=== PATIENT | female | born 1940 | race Caucasian/White ===

== ENCOUNTER 2024-02-26 17:20 | Inpatient (IN) | payer OTHER, SELFPAY ==
[2024-02-26] VITALS (9 sets, daily range): BP systolic 100–172; BP diastolic 57–85; BMI 26.6
[2024-02-26 12:34] LABS: % Basophils 0.3 % (0-2); % Eosinophils 0.1 % (0-6); % Immature Granulocytes 0.6 % (0-0.5); % Lymphocytes 8.1 % (20.5-51.1); % Monocytes 7.7 % (1.7-9.3); % Neutrophils 83.2 % (42.2-75.2); Absolute Basophils 0.1 10^3/uL (0-0.2); Absolute Immature Granulocytes 0.1 10^3/uL (0-0.05); Absolute Lymphocytes 1.5 10^3/uL (1.2-3.4); Absolute Monocytes 1.5 10^3/uL (0.1-0.6); Absolute Neutrophils 15.8 10^3/uL (1.4-6.5); Hematocrit 33.5 % (37.0-47.0); Hemoglobin 11.8 g/dL (12.0-16.0); Mean Corp Hgb Conc. 35.2 g/dL (33.0-37.0); Mean Corpuscular Hgb 28.2 pg (27.0-31.0); Mean Platelet Volume 11.4 fL (7.4-10.4); Nucleated Red Blood Cells % 0 %; Platelet Count 243 10^3/uL (130-400); Red Blood Cell Count 4.19 10^6/uL (4.20-5.40); Red Cell Dist. Width 13.1 % (11.5-14.5); White Blood Cell Count 19.1 10^3/uL (4.8-10.8)
[2024-02-26 12:55] LABS: Blood Urea Nitrogen 29 mg/dl (7-17); Calcium 9.3 mg/dl (8.4-10.2); Carbon Dioxide 22 mmol/L (22-30); Chloride 103 mmol/L (98-107); Glucose 91 mg/dl (70-99); Sodium 136 mmol/L (135-145); eGFR > 60.00
--- NOTE | 2024-02-26 12:57 | ED.GENMED ---
History of Present Illness
General
Chief Complaint: Weakness
Source: patient
Exam Limitations: none
Time Seen by Provider: 02/26/24 11:57
Nursing documentation reviewed up to this point in time: agreed with
History of Present Illness
History of Present Illness:
83-year-old female presents to the ER for evaluation. Daughter at bedside. Patient was at [facility] independent living. Daughter reports patient apparently woke up on the floor. Patient does not recall falling in the middle of the night.
Staff from [facility] was knocking on her door to remind her to take her medicines however she was on the floor and cannot get to them. She does not recall falling. She denies any headache. She denies any chest pain. Daughter reports patient
has peripheral neuropathy and was unable to stand today which is not normal. Patient is normally able to walk with a walker.
When I asked patient how she feels that she states' I want to get out of here.' Daughter reports she feels seems a little off. Patient does complain of chronic numbness and weakness in legs related to neuropathy. Daughter reports patient has some
chronic leg pain that they attribute to neuropathy
Patient denies any recent illness fever chills.
Review of Systems
Review of Systems
Allergies reviewed?: Yes
Other source history: family
Constitutional: Reports no symptoms and other (Patient reports weakness in legs.); Denies fever, fatigue or chills
EENT: Reports no symptoms
Respiratory: Reports no symptoms
Cardiac: Reports no symptoms
ABD/GI: Reports no symptoms; Denies abdominal pain, nausea or vomiting
Musculoskeletal: Reports no symptoms
Skin: Reports no symptoms
Neurological: Reports other (Denies any focal extremity weakness)
Psychiatric: Reports no symptoms
Phy Exam
General Physical Exam
General Presentation: no apparent distress
General age: appears stated age
General Skin: warm and dry
General Habitus: elderly
General Mental: alert
General Hydration: dry mucous membranes
Cardiovascular Exam
Cardiovascular Exam: regular rate/rhythm, no murmur and normal peripheral pulses
Pulmonary Exam
Pulmonary Exam: lungs clear and no respiratory distress
Gastrointestinal Exam
Gastrointestinal Exam: non tender and soft
Neurological Exam
Neurological Exam: alert and oriented x3
Musculoskeletal Exam
Musculoskeletal Exam: full ROM and other (Moves all extremities no obvious head injury small abrasion to right upper lateral arm)
Skin Exam
Skin Exam: normal color and warm/dry
Psychiatric Exam
Psychiatric Exam: normal mood/affect
Course
Orders/Labs/Results
Orders:
Orders
02/26/24 Breakfast
Cholesterol Lowering
At Your Request: Limited Participation
Cholesterol Lowering: Sodium, 2 Gram
02/26/24 12:17
Basic Metabolic Panel Urgent
Complete Blood Count/With Diff Urgent
02/26/24 13:18
CT Head W/o Iv Contrast Urgent
Comment:
Reason For Exam: trauma
IV Insert/Care/Rem.- Treatment PRN
0.9% Sodium Chloride 500 ml [Nss] 500 ml IV BOLUS
02/26/24 13:19
Electrocardiogram (*1) Stat
Reason for Study: Other
Other Reason for Exam: chest pain
Cardiac Monitoring- Treatment ONCE
EKG- Treatment ONCE
Straight cath- Treatment ONCE
02/26/24 13:22
Urinalysis Reflex To Culture Urgent
Date Specimen was Collected: 02/26/24
Time Specimen was Collected: 12:18
02/26/24 14:50
Lactic Acid Urgent
02/26/24 15:36
0.9% Sodium Chloride 500 ml [Nss] 500 ml IV BOLUS
02/26/24 15:45
Creatine Phosphokinase Urgent
Comment: ADDON
Potassium Urgent
Troponin I Urgent
Comment: ADDON
02/26/24 16:00
Chest [CR Chest - 2 Views ] Urgent
Comment:
Reason For Exam: weakness
02/26/24 16:03
Add On- LAB Urgent
Tests Added?: cpk
02/26/24 16:06
Add On- LAB Urgent
Tests Added?: troponin
02/26/24 16:32
COVID-19 Antigen Urgent
Source: Nasal Swab
Influenza A+B Rapid Molecular Urgent
FINA Source: Nasal Swab
Specimen Description:
02/26/24 16:37
Admit/Transfer Patient As Directed
Co-Sign Provider:
Level of Care: Inpatient admission
Assign to:: Telemetry
Physician / Group: del
Diagnosis: generalized weakness,fall
Reason for Telemetry: Syncope
Date to Stop Telemetry: 02/28/24
Time to Stop Telemetry: 11:00
Reason for Hospitalization: generalized fall
weakness
Expected length of stay greater than two midnights?: Yes
ELOS- Estimated Length of Stay in days: 3
I certify the patient meets the requirements for IP care: Yes
PRN Pain Medication Management As Directed
May give lesser potent ordered pain med per pt: Yes
preference::
Protocol:: Medication orders for pain may be administered in a
manner that supports deferring to patient preference
when the pt is:
- Requesting an ordered lesser potent pain medication.
Least to most potent pain medications are defined
as: acetaminophen < NSAID < tramadol < opioids
(morphine, oxycodone, hydromorphone).
- Requesting a lesser dose of the same medication IF
ORDERED.
- Requesting a less intrusive route of administration
if both routes are prescribed by the provider (PO <
IV).
02/26/24 16:38
Code Status As Directed
Resuscitation Status: Full Code
02/26/24 17:07
Aspirin Chewable [Low Strength Aspirin] 81 mg PO NOW STA
02/26/24 18:09
0.9% Sodium Chloride 1000 ml [Nss] 1,000 ml IV 125 mls/hr
Acetaminophen [Tylenol] 650 mg PO Q4HPRN PRN
Bisacodyl [Dulcolax] 10 mg RECTAL [id number] PRN
Docusate W/Senna [Senokot-S] 1 tablet PO BIDPRN PRN
Enoxaparin Sodium [Lovenox] 40 mg SC QPM
Polyethylene Glycol Powder [Miralax] 17 grams PO DAILYPRN PRN
02/26/24 18:09
Echo 2D MMode Color/Doppler Routine
Reason for Study: sob
CARDIOLOGY CONSULT Routine
Consulting Provider: Brenna Graves
Was physician already notified: Yes
Activity As Directed
Activity Level: As Tolerated
Vital Signs As Directed
Frequency: Per unit guidelines
DX Deep Vein Thrombosis Video Routine
02/26/24 19:34
Troponin I Q6H
02/26/24 22:00
Gabapentin [Neurontin] 300 mg PO TID
02/27/24 02:11
Troponin I Q6H
02/27/24 06:00
Occupational Therapy Consult [Ot Eval And Treat] IN AM
Physical Therapy Consult [Pt Eval And Treat] IN AM
Activity Level: As Tolerated
02/27/24 06:58
Basic Metabolic Panel IN AM
Complete Blood Count/No Diff IN AM
02/27/24 08:00
Bupropion(24Hr)Extended Releas [WELLBUTRIN XL (24 hour extended release)] 150 mg PO DAILY
Diltiazem Extended Release [Cardizem Cd] 240 mg PO DAILY
Pravastatin Sodium [Pravachol] 20 mg PO DAILY
02/27/24 08:03
Troponin I Q6H
02/27/24 18:00
Aspirin Chewable [Low Strength Aspirin] 81 mg PO DAILY
02/28/24 11:00
DC Protocol for Telemetry ONCE
Abnormal Lab Results
02/26/24 02/26/24 02/26/24
12:17 13:22 15:45
WBC 19.1 H 10^3/uL
(4.8-10.8)
RBC 4.19 L 10^6/uL
(4.20-5.40)
Hgb 11.8 L g/dL
(12.0-16.0)
Hct 33.5 L %
(37.0-47.0)
MCV 80.0 L fL
(81.0-99.0)
MPV 11.4 H fL
(7.4-10.4)
Abs Immat Gran (auto) 0.1 H 10^3/uL
(0-0.05)
Absolute Neuts (auto) 15.8 H 10^3/uL
(1.4-6.5)
Absolute Monos (auto) 1.5 H 10^3/uL
(0.1-0.6)
Immature Gran % 0.6 H %
(0-0.5)
Neutrophils % 83.2 H %
(42.2-75.2)
Lymphocytes % 8.1 L %
(20.5-51.1)
BUN 29 H mg/dl
(7-17)
Creatine Kinase 1050 H U/L
(30-135)
Troponin I 0.308 H* ng/ml
Urine Ketones 1+ A
(Negative)
02/26/24 12:17
02/26/24 15:45
Vital Signs
Initial and Last Documented VS:
Initial Vital Signs
Temp Pulse Resp BP Pulse Ox
98.3 F 94 16 163/74 98
02/26/24 10:41 02/26/24 10:41 02/26/24 10:41 02/26/24 10:41 02/26/24 10:41
Last Documented Vital Signs
Temp Pulse Resp BP Pulse Ox
98.1 F 101 16 149/76 96
02/27/24 11:55 02/27/24 11:55 02/27/24 11:55 02/27/24 11:55 02/27/24 11:55
MDM/Problems Addressed
Differential Diagnosis Includes:
Not limited to fall, head injury, dehydration infection
MDM/Problems Addressed:
83 yr old female presented for evaluation. Pt apparently fell out of bed in the middle of the night woke up on the floor but was unable to recall the fall.
Pt arrives to the ED awake alert no acute distress. She denies any headache she denies any chest pain shortness of breath fever chills. She denies any neck pain. On exam there is no obvious head injury. She complains of chronic leg pain and
weakness though this is not new as per daughter and patient she has neuropathy. Patient however is barely able to walk as per daughter.
Patient has no complaints here in the ER. she appears dehydrated on exam was given fluids.
No acute findings on EKG CAT scan head negative. Patient is afebrile however white count elevated 19,000. She denies any recent viral syndrome. Potassium was clotted and reordered. Creatinine normal. Lactic is normal 1.6 urinalysis negative
Due to concerning story of patient falling out of bed and not aware that she fell and was on the floor along with increased weakness today along with leukocytosis will admit
*Radiology
Radiology exam reviewed: radiology read reviewed
*Pulse Oximetry
Patient hypoxic: no
*EKG
Interpreted by ED Provider?: Yes
Heart Rate: 87
Rate: normal
Rhythm: sinus and PVC's
Ischemia: non-specific ST changes
*Critical Care Note
Total Time (30-74mins, 75-104mins- exclusive of procedures): Not Applicable
ED Attending Note
-
Portions of this chart may have been created with voice recognition software.� Occasional wrong word or��sound alike� substitutions may have occurred due to the inherent limitations of voice recognition software.
Discharge Plan
Departure
Patient Disposition: Admit
Date of Disposition: 02/26/24
Time of Disposition: 16:17
Admit to doctor: hospitalist
Presentation/result/management discussed w/ accepting MD/DO: Hospitalist
Patient with high blood pressure during this ER visit?: Yes
Condition: Fair
Discharge Problem:
Fall, Weakness
Interventions
Interventions:
*Risk Screen - Suicide Last Done: 02/26/24 10:41
*General Assessment Last Done: 02/26/24 12:16
*Neglect/Abuse Screening Last Done: 02/26/24 10:41
ED- Fall Risk Assessment Last Done: 02/26/24 18:06
*ED COVID-19 Vaccine History Last Done: 02/26/24 12:16
*Nursing Disposition Last Done: 02/26/24 18:06
ED- Cardiac Assessment Last Done: 02/26/24 12:13
ED- Neurological Assessment Last Done: 02/26/24 12:13
ED- Pulmonary Assessment Last Done: 02/26/24 12:13
Discharge Date and Time
Discharge Date/Time: 02/26/24 18:06
[2024-02-26] MEDS: NSS 500 IV ×2 (13:23→15:47)
[2024-02-26 15:41] LABS: Urine Albumin Trace (Neg - Trace); Urine Bilirubin Negative (Negative); Urine Character Clear (Clear); Urine Color Yellow; Urine Glucose Negative (Negative); Urine Ketone 1+ (Negative); Urine Leukocyte Negative (Negative); Urine Nitrite Negative (Negative); Urine Occult Blood Negative (Negative); Urine Specific Gravity 1.015 (<1.030); Urine Urobilinogen Negative (Neg - 1+); Urine pH 6.5 (5.0-9.0)
[2024-02-26 15:46] LABS: Lactic Acid 1.6 mmol/L (0.7-2.0)
[2024-02-26 16:14] LABS: Potassium 3.8 mmol/L (3.5-5.1)
--- NOTE | 2024-02-26 16:17 | HPS.HSE ---
Addendum entered and electronically signed by Rogelio Esquivel DO 02/26/24 18:26:
Patient seen and examined independently. Agree with findings and plan as set forth by BRENT Schmitz.
Patient is an 83y F with PMH significant for hypertension and neuropathy who presents to ED for evaluation after she was found on the floor this AM by staff at [facility]. Patient states that she does not recall falling from bed - she does
not know if she 'rolled out' or if she got up in the middle fo the night and fell. Patient complains of generalized weakness and lower back discomfort - which is chronic - but no other complaints or focal areas of pain. She denies any chest pain,
palpitations, dyspnea, etc. No recent medication changes or symptoms of acute illness.
Ass:
Found Down / Fall from bed
Abnormal Troponin - Unknown Type
Leukocytosis - Suspected Stress Reaction
Benign Hypertension
Anxiety / Depression
Peripheral Neuropathy
Plan:
Admit for further evaluation and treatment.
Follow on telemetry overnight.
EKG with non-specific changes - no prior tracing to compare.
No symptoms at present but initial troponin is elevated. ? cardiac event responsible for syncope presentation?
Follow troponin to peak.
Cardiology eval for additional recommendations.
Check Echo.
Follow for any new / recurrent symptoms.
Infectious evaluation thus far is unremarkable - including COVID / Flu in the ED.
Follow for any fever or focal symptoms. Observe off of abx for now.
Original Note:
Family Physician
-
Family Physician: Concepcion Berumen
Chief Complaint
-
fall
History of Present Illness
83-year-old female with PMH for HTN, HLD,neuropathy presented to us after a fall. Patient is from [facility] independent living. Daughter reports patient apparently woke up on the floor. Patient does not recall falling in the middle of the
night. Staff from [facility] was knocking on her door to remind her to take her medicines however she was on the floor and cannot get to them. the staff at [facility] found vomit next to her. She does not recall falling.since the fall,
patient not sitting straight, she cannot walk. she is very weak. She denies any headache. She denies any chest pain. Patient is normally able to walk with a walker. denied dizzy or syncopal episode, denied fever, chills, chest pain, sob.denied
runny nose, congestion, cough. denied abdominal pain,n,v,d. denied dysuria or hematuria.
admitting for further management.
Medical History
Past Medical History
Past Medical History: Reports Other
Additional Past Medical History:
HTn
HLD
neuropathy
Past Surgical History: Reports Other
Additional Past Surgical History:
hysterectomy
Social History
Tobacco: Non-smoker
Alcohol: Occasional
Personal: Single
Living: Alone
Family History
Family History: Not pertinent
Allergies / Home Medications
Allergies reflects when Allergies were last updated in [facility].
Home Medications with original date entered in [facility]
Allergy/Medication List:
Allergies
Allergy/AdvReac Type Severity Reaction Status Date / Time
Penicillins Allergy Unknown Verified 02/26/24 10:41
Home Medications
bupropion HCl 150 mg 24 hr tablet, extended release 150 mg PO DAILY 02/26/24
cholecalciferol (vitamin D3) 50 mcg (2,000 unit) tablet (Vitamin D3) 50 mcg PO DAILY 02/26/24
cyanocobalamin (vitamin B-12) 1,000 mcg tablet 1,000 mcg PO DAILY 02/26/24
diltiazem HCl 240 mg capsule,24 hr,extended release 240 mg PO DAILY 02/26/24
gabapentin 300 mg capsule 600 mg PO BID 02/26/24
naproxen sodium 220 mg tablet (Aleve) 880 mg PO BIDPRN PRN mild pain 02/26/24
pravastatin 20 mg tablet 20 mg PO DAILY 02/26/24
Review of Systems
-
Constitutional: Reports No Symptoms
EENT: Reports No Symptoms
Respiratory: Reports No Symptoms
Cardiac: Reports No Symptoms
Abdomen/GI: Reports No Symptoms
: Reports No Symptoms
Musculoskeletal: Reports No Symptoms
Skin: Reports No Symptoms
Neurological: Reports No Symptoms
Endocrine: Reports No Symptoms
Hematologic/Lymphatic: Reports No Symptoms
Psych: Reports No Symptoms
Physical Exam
Vital Signs
Vital Signs
Temp Pulse Resp BP Pulse Ox
98.3 F 85 15 131/57 92
02/26/24 10:41 02/26/24 14:30 02/26/24 14:30 02/26/24 13:00 02/26/24 13:30
Physical Exam
General: Well Developed, Well Nourished and No Apparent Distress
HEENT: NormoCephalic, Moist mucous membranes and Atraumatic
Respiratory: Clear
Cardiac: S1/S2 and Regular Rhythm; No Murmur or Rub
GI: Soft, Non Tender, Non Distended and Normal Bowel Sounds; No Organomegaly
Rectal: Deferred by Provider
Musculoskeletal: No Clubbing, No Cyanosis and No Edema
Skin: Rash and Other (b/l LE noted redeness, rash. right shoulder skin tear)
Neuro: Nonfocal/grossly intact
Psych: Calm
Laboratory Results
-
02/26/24 12:17
02/26/24 15:45
Laboratory Results
Lactic Acid 1.6 mmol/L (0.7-2.0) 02/26/24 14:50
Total Bilirubin Cancelled 02/26/24 12:17
AST Cancelled 02/26/24 12:17
ALT Cancelled 02/26/24 12:17
Alkaline Phosphatase Cancelled 02/26/24 12:17
Data Reviewed
-
CT Scan: Report Reviewed by me
Lab Data: Labs Reviewed by me
Impression/Plan
-
#possible syncope
#elevated trop r/o NSTEMI
-trend trop
-EKG with NSR with PVC's
-asa, obtain ECHO
-PT/OT consult
-head CT negative
-cardiology consulted
#leukocytosis unclear cause
-wbc 19.1, patient is afebrile
-UA negative
-chest x ray pending
-covid negative
-flu pending
#anxiety
-Bupropion continued
#essential htn
-Cardizem continued with hold parameter
#neuropathy
-gabapentin continued
#hld
-Statin continued
#DVT prophylaxis
-Lovenox
#CODE status
-full code
[2024-02-26 16:30] LABS: Creatine Phosphokinase 1050 U/L (30-135)
[2024-02-26 16:52] LABS: Troponin I 0.308 ng/ml
[2024-02-26 16:56] LABS: COVID-19 Antigen Negative (Negative)
[2024-02-26] MEDS: LOW STRENGTH ASPIRIN 81 MG PO (17:39)
[2024-02-26] MEDS: NSS 1000 IV (18:22)
[2024-02-26] MEDS: LOVENOX 40 MG SC (18:37)
[2024-02-26 20:11] LABS: Troponin I 0.292 ng/ml
[2024-02-26] MEDS: NEURONTIN 300 MG PO (21:00)
--- NOTE | 2024-02-26 21:55 | W.PN.UPDATE ---
Update Note
Progress Note Update
chest X ray with Subtle increased reticulonodular markings within the lower lungs bilaterally. Findings are most suggestive of interstitial-type pneumonia.ceftriaxone and doxy added.
[2024-02-26] MEDS: ROCEPHIN 1000 MG IV (22:51)
[2024-02-26] MEDS: STERILE WATER FOR INJECTION 10 ML IV (22:51)
[2024-02-26] MEDS: VIBRAMYCIN 100 MG PO (22:51)
[2024-02-27] VITALS (8 sets, daily range): BP systolic 133–166; BP diastolic 68–90; PULSE 97; O2SAT 92–93
[2024-02-27 02:57] LABS: Troponin I 0.305 ng/ml
[2024-02-27] MEDS: PRAVACHOL 20 MG PO (07:58)
[2024-02-27] MEDS: NEURONTIN 300 MG PO ×3 (07:58→20:41)
[2024-02-27] MEDS: CARDIZEM CD 240 MG PO (07:58)
[2024-02-27] MEDS: WELLBUTRIN XL (24 hour extended release) 150 MG PO (07:58)
[2024-02-27] MEDS: VIBRAMYCIN 100 MG PO ×2 (07:58→20:41)
[2024-02-27 08:17] LABS: Hematocrit 33.8 % (37.0-47.0); Hemoglobin 11.6 g/dL (12.0-16.0); Mean Corp Hgb Conc. 34.3 g/dL (33.0-37.0); Mean Corpuscular Hgb 28.4 pg (27.0-31.0); Mean Corpuscular Volume 82.6 fL (81.0-99.0); Mean Platelet Volume 11.3 fL (7.4-10.4); Platelet Count 223 10^3/uL (130-400); Red Blood Cell Count 4.09 10^6/uL (4.20-5.40); Red Cell Dist. Width 13.2 % (11.5-14.5); White Blood Cell Count 12.8 10^3/uL (4.8-10.8)
[2024-02-27 08:50] LABS: Blood Urea Nitrogen 18 mg/dl (7-17); Calcium 9.1 mg/dl (8.4-10.2); Carbon Dioxide 19 mmol/L (22-30); Chloride 105 mmol/L (98-107); Estimated Creatinine Clearance 48 ml/min; Glucose 87 mg/dl (70-99); Potassium 3.6 mmol/L (3.5-5.1); Sodium 138 mmol/L (135-145); eGFR > 60.00
--- NOTE | 2024-02-27 08:52 | CON.CAR ---
Consultation
Consultation Request
Date/Time Consultation Requested: 02/27/2024
Date/Time Consultation Performed: 02/27/2024
Reason for Consultation: Syncope
Medical History
-
Chief Complaint: Syncope
History of Present Illness:
83-year-old woman with a history of hypertension and neuropathy who presented to the [facility] with episode of syncope. Patient is a resident of [facility] and was found down. Patient reports that she was sitting and next thing she
remembers was on the floor. Denies any injury. No pain in the head or body. No chest pain. Denies any frequent syncopes in the past.
Patient is able to ambulate using a walker. She denies any dizziness. No fevers rigors and chills.
Chest x-ray was done in the ER that shows possible pneumonia and is started on antibiotics.
Past Medical History
Past Medical History: HTN, Hypercholesterolemia and Other (Neuropathy)
Social History
Tobacco: Non-Smoker
Alcohol: Occasional
Personal: Single
Family History
Family History: Reviewed & Not Pertinent
Allergies / Home Medications
Allergy/AdvReac Type Severity Reaction Status Date / Time
Penicillins Allergy Unknown Verified 02/26/24 10:41
�Medication �Instructions �Recorded �Confirmed �Type
bupropion HCl 150 mg 24 hr tablet, 150 mg PO DAILY Mental 02/26/24 02/26/24 History
extended release Health/Anxiety
cholecalciferol (vitamin D3) 50 50 mcg PO DAILY Supplement 02/26/24 02/26/24 History
mcg (2,000 unit) tablet (Vitamin
D3)
cyanocobalamin (vitamin B-12) 1,000 mcg PO DAILY Supplement 02/26/24 02/26/24 History
1,000 mcg tablet
diltiazem HCl 240 mg capsule,24 240 mg PO DAILY Blood Pressure 02/26/24 02/26/24 History
hr,extended release
gabapentin 300 mg capsule 600 mg PO BID NEUROPATHY 02/26/24 02/26/24 History
naproxen sodium 220 mg tablet 880 mg PO BIDPRN PRN mild pain 02/26/24 02/26/24 History
(Aleve)
pravastatin 20 mg tablet 20 mg PO DAILY High Cholesterol 02/26/24 02/26/24 History
Review of Systems
-
All other systems: Negative unless noted
Physical Exam
Vital Signs
Temp Pulse Resp BP Pulse Ox
98.1 F 95 16 162/90 92
02/27/24 07:10 02/27/24 07:10 02/27/24 07:10 02/27/24 07:10 02/27/24 07:10
Lab Results
02/27/24 06:58
02/27/24 06:58
Troponin I 0.305 ng/ml H* 02/27/24 02:11
Physical Exam
General: Well Developed, Well Nourished and No Apparent Distress
HEENT: Normocephalic, Anicteric and Moist Mucous Membranes
Respiratory: Crackles (Basal crackles) and Non Labored Respirations
Cardiac: S1/S2 and Regular Rhythm; Negative Murmur
GI: Soft, Non Tender, Non Distended and Normal Bowel Sounds
Musculoskeletal: No Clubbing, No Cyanosis and No Edema
Skin: Warm and Dry
Neuro: Awake, Alert, Oriented, AO x 3 and No Motor Deficits
Impression / Plan
-
83-year-old woman with history of hypertension hyperlipidemia presented with an episode of syncope and found down on the floor.
Syncope
-Unclear etiology of syncope. Patient's chest x-ray is positive for pneumonia
-Possible pneumonia related with leukocytosis. Continue antibiotics
-Telemetry-sofa telemetry shows normal sinus rhythm with PVCs.
-Continue aspirin and will obtain echo.
-EKG done shows normal sinus rhythm with PVCs.
-Echo in a.m.
Hypertension
-Patient is on to 40 mg of diltiazem once a day
-Diltiazem is not a first-line drug for blood pressure control. Not clear of past cardiac history.
-Obtain previous cardiac records.
Hyperlipidemia
-Pravastatin
Data Reviewed
-
EKG: Tracing Personally Visualized and interpreted
Radiology: Report Reviewed by me
Labs: Labs Reviewed by me
Old Records: Reviewed
[2024-02-27 08:57] LABS: Troponin I 0.294 ng/ml
--- NOTE | 2024-02-27 09:04 | W.PN.HOSP.TC ---
Today's Communication/Plan
-
see bold
Assessment / Plan
Assessment / Plan
Gen: NAD, Awake and alert
Eyes: EOMI, PERRLA, no scleral icterus.
Neck: supple.
CV: RRR, +S1/S2, no m/r/g.
Resp: mild rales in the bases
Abd: +BS, soft, NT, ND
Skin: No rashes.
Neuro: CN 2-12 intact, non-focal.
Psych: Normal mood and affect.
CXR: Subtle increased reticulonodular markings within the lower lungs bilaterally. Findings are most suggestive of interstitial-type pneumonia.
Fall/found down/elevated trop:
-Tele: SR/sinus tachy with PVCs
-trop 0.292, 0.305, 0.294 (suspect nonischemic myocardia injury)
-ECG on admission without acute ischemic changes
-check echo
-discussed with cards
-stop IVFs (rales in the bases)
Acute bacterial PNA:
-COVID NEG
-Leukocytosis improving
-afebrile, saturating well on room air
-CXR above, pt started on Rocephin/Doxy
-Procal POS, will treat as bacterial PNA
Other problems:
Essential Hypertension: cont Cardizem
Anxiety/Depression: cont Wellbutrin
Peripheral Neuropathy: cont Neurontin
HLD: cont statin
Anticipated Discharge: 24 - 48 hours
Subjective/Interval History
-
Date of Service: February 27, 2024
Denies CP/SOB.
Objective Data
-
Labs:
Laboratory Results
02/27/24
06:58
WBC 12.8 H
Hgb 11.6 L
Hct 33.8 L
Plt Count 223
Sodium 138
Potassium 3.6
Chloride 105
Carbon Dioxide 19 L
BUN 18 H
Creatinine 0.8
Glucose 87
Calcium 9.1
Vital Signs:
Vital Signs
Temp Pulse Resp BP Pulse Ox
98.1 F 95 16 162/90 92
02/27/24 07:10 02/27/24 07:10 02/27/24 07:10 02/27/24 07:10 02/27/24 07:10
I&O
02/26/24 02/27/24 02/28/24
06:59 06:59 06:59
Intake Total 480 / 480
Balance 480 / 480
[2024-02-27] MEDS: NSS 1000 IV (09:58)
[2024-02-27 10:16] LABS: Procalcitonin 0.97 ng/ml (0.0-0.25)
[2024-02-27] MEDS: NSS IV (10:46)
[2024-02-27] MEDS: TYLENOL 650 MG PO (11:24)
[2024-02-27] MEDS: LOW STRENGTH ASPIRIN 81 MG PO (17:27)
[2024-02-27] MEDS: LOVENOX 40 MG SC (17:27)
[2024-02-27] MEDS: FLUSH (NSS) 2 FLUSH IV (20:44)
[2024-02-27] MEDS: STERILE WATER FOR INJECTION 10 ML IV (21:10)
[2024-02-27] MEDS: ROCEPHIN 1000 MG IV (21:10)
[2024-02-28] VITALS (7 sets, daily range): BP systolic 142–189; BP diastolic 74–96
--- NOTE | 2024-02-28 06:00 | PTCARENOTE ---
BP 182/86 HR 90. Chiara KENNEDY notified of same. Morning cardizem dose given early as suggested by Shanna Dewitt.
[2024-02-28] MEDS: CARDIZEM CD 240 MG PO (06:43)
[2024-02-28] MEDS: NEURONTIN 300 MG PO ×3 (09:19→23:00)
[2024-02-28] MEDS: PRAVACHOL 20 MG PO (09:20)
[2024-02-28] MEDS: LOW STRENGTH ASPIRIN 81 MG PO (09:20)
[2024-02-28] MEDS: WELLBUTRIN XL (24 hour extended release) 150 MG PO (09:20)
[2024-02-28] MEDS: VIBRAMYCIN 100 MG PO ×2 (09:20→20:29)
--- NOTE | 2024-02-28 09:51 | W.PN.HOSP.TC ---
Today's Communication/Plan
-
see bold
Assessment / Plan
Assessment / Plan
Gen: NAD, Awake and alert
Eyes: EOMI, PERRLA, no scleral icterus.
Neck: supple.
CV: RRR, +S1/S2, no m/r/g.
Resp: CTAB anteriorly
Abd: +BS, soft, NT, ND
Skin: No rashes.
Neuro: CN 2-12 intact, non-focal.
Psych: Normal mood and affect.
CXR: Subtle increased reticulonodular markings within the lower lungs bilaterally. Findings are most suggestive of interstitial-type pneumonia.
Fall/found down/elevated trop:
-Tele: SR/sinus tachy with PVCs
-trop 0.292, 0.305, 0.294 (suspect nonischemic myocardia injury)
-ECG on admission without acute ischemic changes
-was on IVFs, now off
-check echo
-discussed with cards
Acute bacterial PNA:
-COVID NEG
-Leukocytosis improving
-afebrile, saturating well on room air
-CXR above, pt started on Rocephin/Doxy
-Procal POS, treating as bacterial PNA
Other problems:
Essential Hypertension: cont Cardizem, start Lisinopril 10
Anxiety/Depression: cont Wellbutrin
Peripheral Neuropathy: cont Neurontin
HLD: cont statin
FULL/Lovenox
Anticipated Discharge: Within 24 hours
Subjective/Interval History
-
Date of Service: February 28, 2024
Objective Data
-
Vital Signs:
Vital Signs
Temp Pulse Resp BP Pulse Ox
98.3 F 94 18 174/96 93
02/28/24 08:06 02/28/24 08:06 02/28/24 08:06 02/28/24 08:06 02/28/24 08:06
I&O
02/27/24 02/28/24 02/29/24
06:59 06:59 06:59
Intake Total 480 / 480 360 / 360
Balance 480 / 480 360 / 360
[2024-02-28] MEDS: ZESTRIL 10 MG PO (10:26)
[2024-02-28 10:33] LABS: Hematocrit 36.3 % (37.0-47.0); Hemoglobin 12.5 g/dL (12.0-16.0); Mean Corp Hgb Conc. 34.4 g/dL (33.0-37.0); Mean Corpuscular Hgb 29.1 pg (27.0-31.0); Mean Corpuscular Volume 84.6 fL (81.0-99.0); Mean Platelet Volume 10.9 fL (7.4-10.4); Platelet Count 236 10^3/uL (130-400); Red Blood Cell Count 4.29 10^6/uL (4.20-5.40); Red Cell Dist. Width 13.1 % (11.5-14.5)
[2024-02-28 10:37] LABS: Blood Urea Nitrogen 14 mg/dl (7-17); Calcium 9.5 mg/dl (8.4-10.2); Carbon Dioxide 23 mmol/L (22-30); Chloride 104 mmol/L (98-107); Estimated Creatinine Clearance 43 ml/min; Glucose 126 mg/dl (70-99); Sodium 137 mmol/L (135-145); eGFR > 60.00
--- NOTE | 2024-02-28 16:32 | W.PN.CD ---
Today's Communication / Plan
-
Unremarkable TTE
Does not appear to be a CV cause for syncope.
We will sign off please call with questions/concerns.
Impression / Plan
-
83-year-old woman with history of hypertension hyperlipidemia presented with an episode of syncope and found down on the floor.
Syncope
-Unclear etiology of syncope. Patient's chest x-ray is positive for pneumonia
-Possible pneumonia related with leukocytosis. Continue antibiotics
-Telemetry-sofa telemetry shows normal sinus rhythm with PVCs.
-Continue aspirin and will obtain echo.
-EKG done shows normal sinus rhythm with PVCs.
-Echo below
- does not appear to be from a CV cause at this point
Hypertension
-Patient is on to 40 mg of diltiazem once a day
-Diltiazem is not a first-line drug for blood pressure control. Not clear of past cardiac history.
-Obtain previous cardiac records.
Hyperlipidemia
-Pravastatin
TTE: CONCLUSIONS
Normal LV size and function with no regional wall motion abnormalities.
LVEF is 60-65% by visual estimation.
Mild concentric LVH with moderate septal hypertrophy.
Normal right ventricular size and function.
Mild aortic regurgitation.
Estimated pulmonary artery pressure of 24 mmHg, assuming a right atrial
pressure of 3 mmHg.
No prior study available for comparison.
Physical Exam
Vital Signs/Labs
Vital Signs
Temp Pulse Resp BP Pulse Ox
97.5 F 95 18 142/84 97
02/28/24 14:43 02/28/24 14:43 02/28/24 14:43 02/28/24 14:43 02/28/24 14:43
02/27/24 02/28/24 02/29/24
06:59 06:59 06:59
Actual Weight 147 lb 7 oz
02/28/24 10:05
02/28/24 10:05
LAB Results
02/26/24 02/26/24 02/27/24
15:45 19:34 02:11
Troponin I 0.308 H* 0.292 H* 0.305 H*
02/27/24
08:03
Troponin I 0.294 H*
Physical Exam
Constitutional: No acute distress
EENT: Anicteric
Cardiovascular: Rhythm & rate is regular and Pedal edema is absent
Respiratory: Respiratory effort normal and Lungs clear to auscul.
GI: Soft
Neuro/Psych: Alert and Oriented
Data Reviewed
-
Date of Service: February 28, 2024
EKG: Tracing Personally Visualized and interpreted (sr)
Echo: Tracing Personally Visualized and interpreted
Labs: Labs Reviewed by me
[2024-02-28] MEDS: SENOKOT-S 1 TABLET PO (17:36)
[2024-02-28] MEDS: LOVENOX 40 MG SC (17:37)
[2024-02-28] MEDS: STERILE WATER FOR INJECTION 10 ML IV (23:12)
[2024-02-28] MEDS: ROCEPHIN 1000 MG IV (23:12)
[2024-02-29] VITALS (7 sets, daily range): BP systolic 142–176; BP diastolic 69–90; PULSE 98–115; O2SAT 94–95
[2024-02-29 08:13] LABS: Hematocrit 34.8 % (37.0-47.0); Hemoglobin 11.8 g/dL (12.0-16.0); Mean Corp Hgb Conc. 33.9 g/dL (33.0-37.0); Mean Corpuscular Volume 82.5 fL (81.0-99.0); Mean Platelet Volume 10.5 fL (7.4-10.4); Platelet Count 251 10^3/uL (130-400); Red Blood Cell Count 4.22 10^6/uL (4.20-5.40); White Blood Cell Count 6.3 10^3/uL (4.8-10.8)
[2024-02-29] MEDS: VIBRAMYCIN 100 MG PO (08:50)
[2024-02-29] MEDS: CARDIZEM CD 240 MG PO (08:50)
[2024-02-29] MEDS: LOW STRENGTH ASPIRIN 81 MG PO (08:50)
[2024-02-29] MEDS: ZESTRIL 10 MG PO (08:50)
[2024-02-29] MEDS: WELLBUTRIN XL (24 hour extended release) 150 MG PO (08:50)
[2024-02-29] MEDS: PRAVACHOL 20 MG PO (08:50)
[2024-02-29] MEDS: NEURONTIN 300 MG PO (08:50)
[2024-02-29 08:53] LABS: Blood Urea Nitrogen 15 mg/dl (7-17); Calcium 9.6 mg/dl (8.4-10.2); Carbon Dioxide 25 mmol/L (22-30); Chloride 102 mmol/L (98-107); Estimated Creatinine Clearance 43 ml/min; Glucose 88 mg/dl (70-99); Potassium 4.2 mmol/L (3.5-5.1); Sodium 138 mmol/L (135-145); eGFR > 60.00
--- NOTE | 2024-02-29 10:42 | W.PN.HOSP.TC ---
Addendum entered and electronically signed by Caleb Falcon MD 02/29/24 12:32:
Total time spent on d/c = 37 min. This included today's physical exam, progress note, review of laboratory and diagnostic data, preparation of discharge documents and prescriptions, and discussions about the pt's hospital course and discharge plan
with the patient and other medical appliance maker involved in the patient's care.
Original Note:
Today's Communication/Plan
-
see bold
Assessment / Plan
Assessment / Plan
Gen: NAD, Awake and alert
Eyes: EOMI, PERRLA, no scleral icterus.
Neck: supple.
CV: remains RRR, +S1/S2, no m/r/g.
Resp: remains CTAB anteriorly
Abd: remains +BS, soft, NT, ND
Skin: No rashes.
Neuro: CN 2-12 intact, non-focal.
Psych: Normal mood and affect.
CXR: Subtle increased reticulonodular markings within the lower lungs bilaterally. Findings are most suggestive of interstitial-type pneumonia.
Echo: Normal LV size and function with no regional wall motion abnormalities.
LVEF is 60-65% by visual estimation.
Mild concentric LVH with moderate septal hypertrophy.
Normal right ventricular size and function.
Mild aortic regurgitation.
Estimated pulmonary artery pressure of 24 mmHg, assuming a right atrial
pressure of 3 mmHg.
No prior study available for comparison.
Fall/found down/elevated trop:
-Tele: SR/sinus tachy with PVCs
-trop 0.292, 0.305, 0.294 (suspect nonischemic myocardia injury)
-ECG on admission without acute ischemic changes
-was on IVFs, now off
-echo above
-cardiology saw the pt in consult and does not feel the patient's syncope was cardiac in etiology. They have signed off.
Acute bacterial PNA:
-COVID NEG
-Leukocytosis improving
-afebrile, saturating well on room air
-CXR above, pt started on Rocephin/Doxy
-Procal POS, treating as bacterial PNA
Other problems:
Essential Hypertension: cont Cardizem, Lisinopril 10 started
Anxiety/Depression: cont Wellbutrin
Peripheral Neuropathy: cont Neurontin
HLD: cont statin
FULL/Lovenox
Medically cleared for d/c. Case management aware.
Anticipated Discharge: Today
Subjective/Interval History
-
Date of Service: February 29, 2024
Objective Data
-
Labs:
Laboratory Results
02/29/24
07:53
WBC 6.3
Hgb 11.8 L
Hct 34.8 L
Plt Count 251
Sodium 138
Potassium 4.2
Chloride 102
Carbon Dioxide 25
BUN 15
Creatinine 0.9
Glucose 88
Calcium 9.6
Vital Signs:
Vital Signs
Temp Pulse Resp BP Pulse Ox
97.5 F 88 22 176/90 97
02/29/24 07:46 02/29/24 08:50 02/29/24 07:46 02/29/24 08:50 02/29/24 07:46
I&O
02/28/24 02/29/24 03/01/24
06:59 06:59 06:59
Intake Total 360 / 360
Balance 360 / 360
--- NOTE | 2024-02-29 12:26 | W.DCSUMMARY ---
Discharge Summary
Discharge Data
Date of Admission: 02/26/24
Date of Discharge: 02/29/24
-
Pending Results: No
Hospital Course
Primary diagnoses:
Acute pneumonia
Nonischemic myocardial injury
Secondary diagnoses:
Essential Hypertension
Anxiety
Depression
Peripheral Neuropathy
Hyperlipidemia
Consultants:
Cardiology
Imaging:
CXR: Subtle increased reticulonodular markings within the lower lungs bilaterally. Findings are most suggestive of interstitial-type pneumonia.
Echo: Normal LV size and function with no regional wall motion abnormalities.
LVEF is 60-65% by visual estimation.
Mild concentric LVH with moderate septal hypertrophy.
Normal right ventricular size and function.
Mild aortic regurgitation.
Estimated pulmonary artery pressure of 24 mmHg, assuming a right atrial
pressure of 3 mmHg.
No prior study available for comparison.
Hospital course: 83-year-old female who presented after she was found down on the floor at [facility]. Her troponins were 0.292, 0.305, 0.294 and this was likely nonischemic myocardia injury. Telemetry showed sinus rhythm and sinus tachycardia
with PVCs. ECG on admission was without acute ischemic changes. She was on IV fluids early on during hospitalization. Echocardiogram above. The patient was seen in consultation by cardiology and they did not feel the patient's syncope was
cardiac in etiology. Cardiology signed off. Chest x-ray above. Patient was COVID-negative. Patient was placed on Rocephin and doxycycline as her procalcitonin was positive. She had a leukocytosis on admission that resolved. She will complete
antibiotic therapy with Levaquin.
Discharge Plan
-
Patient Disposition: Long-Term/SNF
Discharge Diagnosis/Procedures: Pneumonia, elevated troponin due to nonischemic myocardial injury
Condition: Good
Diet: Low Cholesterol
Activity: As tolerated
Driving Restrictions: Not until seen by your Dr
Others Tests: Chest x-ray 4 weeks
Referrals:
Concepcion Berumen MD [Family Provider] - in less than 1 week
Prescriptions:
New
lisinopril 10 mg Tablet
10 mg PO DAILY Qty: 0 0RF
aspirin 81 mg Tablet,Chewable
81 mg PO DAILY Qty: 0 0RF
gabapentin 300 mg Capsule
300 mg PO TID Qty: 0 0RF
levofloxacin 750 mg tablet
750 mg PO DAILY Qty: 3 0RF
Rx Instructions:
last day 03/03/24
Continued
cyanocobalamin (vitamin B-12) 1,000 mcg Tablet
1,000 mcg PO DAILY
diltiazem HCl 240 mg Capsule,Extended Release 24 Hr
240 mg PO DAILY
bupropion HCl 150 mg Tablet Extended Release 24 Hr
150 mg PO DAILY
cholecalciferol (vitamin D3) [Vitamin D3] 50 mcg (2,000 unit) Tablet
50 mcg PO DAILY
pravastatin 20 mg Tablet
20 mg PO DAILY
Discontinued
naproxen sodium [Aleve] 220 mg Tablet
880 mg PO BIDPRN PRN (Reason: mild pain)
gabapentin 300 mg Capsule
600 mg PO BID
Discharge Orders:
Discharge Patient (As Directed); Ordered 02/29/24
Ordered By: Caleb Falcon
Discharge Date and Time
Print Language: MAORI
[2024-02-29] MEDS: LEVAQUIN 750 MG PO (13:00)
[2024-02-29 13:38] LABS: COVID-19 Antigen Negative (Negative)
--- NOTE | 2024-02-29 15:42 | PTCARENOTE ---
Received patient this am AAOx3. Pt forgetful an anxious. Pt tolerated diet well. OOB to chair with assistance x2 and tolerated. Pt offered no complaints. Made patient comfortable. Cont to assess patient status. Pt for discharge to [facility] today.
== END 2024-02-29 15:44 | DRG 194 ==
LOC: 4 EAST ACU 17:20
PROVIDERS: Nurse Practitioner; Registered Nurse; ADMITTING PHYSICIAN Hospitalist; ATTENDING PHYSICIAN Internal Medicine; CONSULT PHYSICIAN Internal Medicine Cardiovascular Disease; EMERGENCY PHYSICIAN Emergency Medicine; FAMILY PHYSICIAN Internal Medicine Geriatric Medicine
DX: J15.9 Unspecified bacterial pneumonia (principal); I5A Non-ischemic myocardial injury (non-traumatic); R55 Syncope and collapse; I10 Essential (primary) hypertension; G62.9 Polyneuropathy, unspecified; F32.A Depression, unspecified; F41.9 Anxiety disorder, unspecified; E78.00 Pure hypercholesterolemia, unspecified; G89.29 Other chronic pain; Z79.899 Other long term (current) drug therapy; Z88.0 Allergy status to penicillin; Z11.52 Encounter for screening for COVID-19
CPT/HCPCS: 70450; 71046; 80048; 81003; 82550; 83605; 84132; 84145; 84484; 85025; 85027; 87502; 87811; 93005; 93306; 96360; 96361; 97163; 97166; 97530; 97535; 99285

== ENCOUNTER 2024-10-03 09:19 | Emergency (ER) | payer MEDICARE, SELFPAY ==
[2024-10-03 09:30] VITALS: BMI 28.3
--- NOTE | 2024-10-03 09:30 | ED.GENMED ---
History of Present Illness
General
Chief Complaint: Urinary Symptoms
Source: records [facility]
Time Seen by Provider: 10/03/24 09:22
History of Present Illness
History of Present Illness:
84-year-old female with past medical history of hypertension, hyperlipidemia, stress incontinence, anxiety and depression presenting to the emergency department for evaluation via EMS from [facility] for
evaluation of inability to urinate this morning. Staff at the [facility] states that patient noted she needed to go to the bathroom multiple times, they placed her on the toilet but she was unable to urinate, bladder scan was done
which showed greater than 1100 mL of urine but they were unfortunately unable to place a Huff catheter so she was sent to the ER for further evaluation. No reported fevers, chills, rigors, nausea, vomiting, back or flank pain or any other
concerns. Patient unsure of any recent medication changes.
Past History
Past History
ED Past Medical History: HTN, Hypercholesterolemia, Psychiatric and Other (Urinary stress incontinence)
ED Past Surgical History: Gynecological
Social History
Tobacco: Non-smoker
Alcohol: None
Drug: None
Personal:
Living: assisted living
Review of Systems
Review of Systems
All Other Systems: ROS reviewed and negative except as documented in HPI and ROS
Phy Exam
Physical Exam
Physical Exam:
GENERAL: Alert , in no apparent distress but appears uncomfortable
EYE: conjunctiva clear
NECK: Supple
ENT: mmm.
CARDIAC: Regular rate and rhythm
LUNGS: Clear breath sounds bilaterally, no acute respiratory distress, no wheezes/rales/rhonchi
ABDOMEN: Lower abdominal distention, firm, remainder of abdomen is soft and without tenderness
NEUROLOGICAL: Alert and oriented to person place and time
SKIN: Warm and dry, skin intact.
MUSCULOSKELETAL: well perfused.
PSYCH: Normal and appropriate interaction.
Scores
Heart Failure Risk
Heart Failure Risk Score: Not Applicable
Heart Score for Chest Pain Patients
STEMI patient?: Not applicable
Withdrawal Assessment of Alcohol
Withdrawal Assessment Completed?: Not applicable
Course
Orders/Labs/Results
Orders:
Orders
10/03/24 09:29
Bladder Scan- Treatment ONCE
Catheter [Huff Placement- Treatment] ONCE
Reason for insertion: Acute Retention
Catheter- Indwelling As Directed
Reason for insertion: Acute Retention
Discontinue Date/Time: 10/06/24 0600
10/03/24 09:45
Complete Blood Count/With Diff Urgent
Urinalysis Reflex To Culture Urgent
Date Specimen was Collected: 10/03/24
Time Specimen was Collected: 09:29
10/03/24 10:54
Basic Metabolic Panel Urgent
Abnormal Lab Results
10/03/24 10/03/24
09:45 10:54
MPV 11.2 H fL
(7.4-10.4)
BUN 20 H mg/dl
(7-17)
10/03/24 09:45
10/03/24 10:54
Vital Signs
Initial and Last Documented VS:
Initial Vital Signs
Pulse Resp Pulse Ox
79 13 98
10/03/24 09:28 10/03/24 09:28 10/03/24 09:28
Last Documented Vital Signs
Temp Pulse Resp BP Pulse Ox
98.5 F 80 16 126/75 98
10/03/24 12:56 10/03/24 12:56 10/03/24 12:56 10/03/24 12:56 10/03/24 12:56
MDM/Problems Addressed
Differential Diagnosis Includes:
Bladder outlet obstruction, renal dysfunction, urinary tract infection/cystitis
MDM/Problems Addressed:
84-year-old female presenting to the ER for evaluation of lower abdominal pressure with inability to urinate with symptoms reportedly starting this morning. Staff at her snf facility attempted to pass a Huff catheter unsuccessfully x
2. Bladder scan done here showed greater than 1 L of urine. Huff catheter placed without problem. Draining clear yellow urine without sediment. Patient's records show a noted history for chronic lower back pain however patient without any focal
neurologic deficits to her lower extremities or current back pain making my suspicion for cauda equina pretty low. Question urinary tract infection however there is no pyuria or urinary sediment. Patient going back to snf facility
where she can be continuously monitored. Anticipate discharge back to facility.
*Pulse Oximetry
Patient hypoxic: no
*Critical Care Note
Total Time (30-74mins, 75-104mins- exclusive of procedures): Not Applicable
Data Reviewed
Review of Other/Old Records Reveals: Labs and Discharge Summary
Patient Management
Discussion with other providers: long term staff
Escalation/DeEscalation of care consider admission/obs:
Patient's labs are reassuring. No evidence for acute kidney injury. Urinalysis without sign of infection. At this time patient is stable for discharge home back to the snf facility for continued care.
ED Attending Note
-
Portions of this chart may have been created with voice recognition software.� Occasional wrong word or��sound alike� substitutions may have occurred due to the inherent limitations of voice recognition software.
Discharge Plan
Departure
Patient Disposition: Custodial/SNF
Date of Disposition: 10/03/24
Time of Disposition: 11:29
Patient with high blood pressure during this ER visit?: No
Discharge Problem:
Acute urinary retention
Instructions: Urinary retention - Discharge instructions
Prescriptions:
No Action
cyanocobalamin (vitamin B-12) 1,000 mcg Tablet
1,000 mcg PO DAILY
diltiazem HCl 240 mg Capsule,Extended Release 24 Hr
240 mg PO DAILY
bupropion HCl 150 mg Tablet Extended Release 24 Hr
150 mg PO DAILY
cholecalciferol (vitamin D3) [Vitamin D3] 50 mcg (2,000 unit) Tablet
50 mcg PO DAILY
aspirin 81 mg Tablet,Chewable
81 mg PO DAILY Qty: 0 0RF
gabapentin 300 mg Capsule
300 mg PO TID Qty: 0 0RF
sertraline [Zoloft] 50 mg Tablet
50 mg PO DAILY
Referrals:
Edwin Lamar Jr., MD [Active] - (Urology- Follow up for catheter removal)
UNKNOWN - PT DOES,NOT KNOW [Family Provider] -
Interventions
Interventions:
*Risk Screen - Suicide Last Done: 10/03/24 09:31
*General Assessment Last Done: 10/03/24 09:31
*Neglect/Abuse Screening Last Done: 10/03/24 09:31
*ED- Fall Risk Assessment Last Done: 10/03/24 09:31
*ED COVID-19 Vaccine History Last Done: 10/03/24 09:31
*Nursing Disposition Last Done: 10/03/24 12:33
ED-Female Genitourinary Assessment Last Done: 10/03/24 09:31
Discharge Date and Time
Discharge Date/Time: 10/03/24 12:56
Print Language: ALBANIAN
[2024-10-03 09:31] VITALS: BP 186/90
[2024-10-03 09:41] VITALS: BP 179/72
[2024-10-03 09:55] LABS: % Basophils 0.6 % (0-2); % Eosinophils 2.4 % (0-6); % Immature Granulocytes 0.3 % (0-0.5); % Lymphocytes 25.2 % (20.5-51.1); % Monocytes 8.7 % (1.7-9.3); % Neutrophils 62.8 % (42.2-75.2); Absolute Eosinophils 0.2 10^3/uL (0-0.7); Absolute Lymphocytes 1.7 10^3/uL (1.2-3.4); Absolute Monocytes 0.6 10^3/uL (0.1-0.6); Absolute Neutrophils 4.1 10^3/uL (1.4-6.5); Hematocrit 38.8 % (37.0-47.0); Hemoglobin 13.2 g/dL (12.0-16.0); Mean Corpuscular Hgb 29.5 pg (27.0-31.0); Mean Corpuscular Volume 86.6 fL (81.0-99.0); Mean Platelet Volume 11.2 fL (7.4-10.4); Nucleated Red Blood Cells % 0 %; Platelet Count 211 10^3/uL (130-400); Red Blood Cell Count 4.48 10^6/uL (4.20-5.40); Red Cell Dist. Width 13.1 % (11.5-14.5); White Blood Cell Count 6.6 10^3/uL (4.8-10.8)
[2024-10-03 10:00] VITALS: BP 168/86
[2024-10-03 10:05] LABS: Urine Albumin Negative (Neg - Trace); Urine Bilirubin Negative (Negative); Urine Character Clear (Clear); Urine Color Yellow; Urine Glucose Negative (Negative); Urine Ketone Negative (Negative); Urine Leukocyte Negative (Negative); Urine Nitrite Negative (Negative); Urine Occult Blood Negative (Negative); Urine Urobilinogen Negative (Neg - 1+)
[2024-10-03 11:00] VITALS: BP 164/72
[2024-10-03 11:30] LABS: Blood Urea Nitrogen 20 mg/dl (7-17); Calcium 9.2 mg/dl (8.4-10.2); Carbon Dioxide 25 mmol/L (22-30); Chloride 107 mmol/L (98-107); Estimated Creatinine Clearance 50 ml/min; Glucose 74 mg/dl (70-99); Sodium 138 mmol/L (135-145); eGFR > 60.00
--- NOTE | 2024-10-03 11:40 | EDRN ---
this RN called the receiving facility [facility] at [phone] and this RN was forwarded to the apartment hotel manager Jess's voice mail, this RN left a voice mail regarding the pt returning to the facility
--- NOTE | 2024-10-03 12:31 | EDRN ---
this RN attempted to call [facility] the [facility] again at [phone] to give verbal report and to notify staff that the pt is being sent back with an indwelling urinary catheter and this RN was able to speak with staff and give verbal
report
[2024-10-03 12:56] VITALS: BP 126/75
== END 2024-10-03 12:56 ==
LOC: EMR 09:19
PROVIDERS: Physician Assistant Medical; EMERGENCY PHYSICIAN Emergency Medicine
DX: R33.9 Retention of urine, unspecified (principal); R10.30 Lower abdominal pain, unspecified; R14.0 Abdominal distension (gaseous); I10 Essential (primary) hypertension; E78.00 Pure hypercholesterolemia, unspecified; N39.3 Stress incontinence (female) (male); F41.9 Anxiety disorder, unspecified; F32.A Depression, unspecified; M54.50 Low back pain, unspecified; G89.29 Other chronic pain; Z79.82 Long term (current) use of aspirin; Z88.0 Allergy status to penicillin
CPT/HCPCS: 99284; 51798; 51702; 80048; 81003; 85025